=== PATIENT | female | born 1960 | race African-American/Black ===

== ENCOUNTER → 2018-11-17 | Outpatient (CLI) | payer OTHER | LOC: HYPER 11-05 11:12 | DX: L98.492 Non-pressure chronic ulcer of skin of other sites with fat layer exposed (principal); L58.1 Chronic radiodermatitis; C50.212 Malignant neoplasm of upper-inner quadrant of left female breast; D70.1 Agranulocytosis secondary to cancer chemotherapy; I87.2 Venous insufficiency (chronic) (peripheral); I97.2 Postmastectomy lymphedema syndrome; Z17.1 Estrogen receptor negative status [ER-] ==